=== PATIENT | female | born 1990 | race Caucasian/White ===

== ENCOUNTER 2017-01-19 14:38 | Inpatient (IN) | payer MEDICAID ==
[~2017-01-19] VITALS: Ht 160 cm; Wt 52.2 kg
[2017-01-19 16:00] VITALS: BP_SYST 93
[2017-01-19 16:12] VITALS: BP_SYST 93
[2017-01-19] MEDS ORDERED: MEPERIDINE HCL/PF 50 MG/ML AMP IVP PRN (16:15)
[2017-01-19] MEDS ORDERED: D5LR 1,000 ML IV SCH (16:30)
[2017-01-19 17:21] LABS: HEMATOCRIT 25.2 % (36-48); HEMOGLOBIN 8.4 g/dL (12.0-16.0); MEAN CORPUSCULAR HEMOGLOBIN 28 pg (27-31); MEAN CORPUSCULAR HGB CONC 34 % (32-36); MEAN CORPUSCULAR VOLUME 83 fL (79.0-98.0); PLATELET COUNT (AUTO) 201 K/uL (130-430); RED BLOOD CELL COUNT(AUTO) 3.05 MIL/uL (4.2-6.2); RED CELL DISTRIBUTION WIDTH 12.9 % (9.0-15.0); WHITE BLOOD COUNT (AUTO) 23.6 K/uL (4.8-10.8)
[2017-01-19 17:33] LABS: INR 1.1 (0.8-1.2); PROTHROMBIN TIME 11.7 SECS (9.5-12.5)
[2017-01-19 17:59] LABS: ATYPICAL LYMPHOCYTES % 0 % (0-0); BAND % (MANUAL) 1 % (0-6); BASOPHILS % (MANUAL) 0 % (0-2); EOSINOPHILS % (MANUAL) 0 % (0-7); LYMPHOCYTES % (MANUAL) 6 % (20-46); MONOCYTES % (MANUAL) 3 % (0-11)
[2017-01-19] MEDS ORDERED: PROMETHAZINE HCL 25 MG/ML AMP IM PRN ×2 (19:15)
[2017-01-19] MEDS ORDERED: ONDANSETRON HCL 4 MG/2 ML VIAL IVP PRN (19:15)
[2017-01-19] MEDS ORDERED: LR 1,000 ML IV SCH (19:16)
[2017-01-19] MEDS ORDERED: HYDROmorphone 2 MG/ML VIAL IVP PRN ×2 (19:30)
[2017-01-19] MEDS ORDERED: HYDROmorphone 1 MG INJ. 1 MG/ML AMPUL IVP PRN (19:30)
[2017-01-19] MEDS ORDERED: MEPERIDINE HCL/PF 25 MG/ML DISP.SYRIN IVP PRN (19:30)
[2017-01-19 19:58] VITALS: BP_SYST 112
== END 2017-01-19 22:30 | disposition home or self-care (01) | DRG 544 ==
LOC: SMU 15:40
PROVIDERS: ADMIT Specialist; ATTEND Specialist
PROC: 10D17ZZ Extraction of Products of Conception, Retained, Via Natural or Artificial Opening (ICD-10-PCS; principal; 2017-01-19 19:00)
DX: O03.4 Incomplete spontaneous abortion without complication (principal)
CPT/HCPCS: 36415; 85007; 85027; 85610-TC; 86886; 86900; 86901; 86920; 87081; 88305; J2175; J7120